=== PATIENT | female | born 1965 | race Caucasian/White ===

== ENCOUNTER 2018-04-27 17:50 | Emergency (ER) | payer MEDICAID ==
[~2018-04-27] VITALS: Ht 160 cm; Wt 88.5 kg
[2018-04-27 17:57] VITALS: BP_SYST 138
[2018-04-27 18:33] LABS: BILIRUBIN,URINE NEGATIVE (NEGATIVE); BLOOD, URINE NEGATIVE (NEGATIVE); CLARITY/URINE CLEAR (CLEAR); COLOR,URINE YELLOW (YELLOW); GLUCOSE,URINE NEGATIVE (NEGATIVE); KETONES,URINE NEGATIVE (NEGATIVE); LEUKOCYTE ESTERASE ,URINE NEGATIVE (NEGATIVE); NITRITE, URINE NEGATIVE (NEGATIVE); PROTEIN URINE NEGATIVE (NEGATIVE); UROBILINOGEN,URINE 0.2 (0.2-1.0)
[2018-04-27 18:59] LABS: BASOPHILS % (AUTO) 0.4 % (0.0-2.0); EOSINOPHILS # (AUTO) 0.3 K/uL (0.0-0.4); EOSINOPHILS % (AUTO) 4.4 % (0.0-4.0); HEMATOCRIT 37.8 % (36-48); HEMOGLOBIN 12.6 g/dL (12.0-16.0); LYMPHOCYTES % (AUTO) 30.2 % (20.5-51.5); MEAN CORPUSCULAR HEMOGLOBIN 29 pg (27-31); MEAN CORPUSCULAR HGB CONC 33 % (32-36); MEAN CORPUSCULAR VOLUME 86 fL (79.0-98.0); MONOCYTES # (AUTO) 0.4 K/uL (0.0-1.0); PLATELET COUNT (AUTO) 219 K/uL (130-430); RED BLOOD CELL COUNT(AUTO) 4.37 MIL/uL (4.2-6.2); RED CELL DISTRIBUTION WIDTH 12.4 % (9.0-15.0); WHITE BLOOD COUNT (AUTO) 6.7 K/uL (4.8-10.8)
[2018-04-27 19:03] LABS: CALCIUM 8.8 mg/dL (8.4-11.0); CREATININE 0.59 mg/dL (0.55-1.30); POTASSIUM 4.1 mmol/L (3.5-5.1)
[2018-04-27 19:18] LABS: ALBUMIN 3.4 g/dL (3.4-4.8); THYROID STIMULATING HORMONE 0.7 uIu/mL (0.34-4.82); TOTAL BILIRUBIN 0.2 mg/dL (0.0-1.0)
[2018-04-27 20:05] VITALS: BP_SYST 129
== END 2018-04-27 20:05 | disposition home or self-care (01) ==
LOC: SED 17:50
DX: R53.1 Weakness (principal); Z88.5 Allergy status to narcotic agent; Z88.6 Allergy status to analgesic agent
CPT/HCPCS: 36415; 71045; 80053; 81003; 83605; 84443-TC; 84484; 85025; 93005; 99285

== ENCOUNTER 2018-08-31 12:05 | Emergency (ER) | payer MEDICAID ==
[~2018-08-31] VITALS: Ht 160 cm; Wt 99.8 kg
[2018-08-31 12:10] VITALS: BP_SYST 157
[2018-08-31 13:01] VITALS: BP_SYST 148
== END 2018-08-31 13:01 | disposition home or self-care (01) ==
LOC: SED 12:05
DX: N39.0 Urinary tract infection, site not specified (principal); R09.1 Pleurisy; F17.200 Nicotine dependence, unspecified, uncomplicated; R03.0 Elevated blood-pressure reading, without diagnosis of hypertension; Z71.6 Tobacco abuse counseling; Z88.5 Allergy status to narcotic agent
CPT/HCPCS: 99283

== ENCOUNTER 2022-08-27 09:57 | Emergency (ER) | payer MEDICAID ==
[~2022-08-27] VITALS: Ht 160 cm; Wt 90.7 kg
--- NOTE | 2022-08-27 10:00 | NUR ---
Patient triaged and placed in waiting room. VSS and patient appears in no acute distress at this time. Accompanied by , awaiting available bed, and MD notified of need for MSE.
[2022-08-27 10:01] VITALS: BP_SYST 157
--- NOTE | 2022-08-27 10:04 | NUR ---
ER DR. HUDSON EXAMINING PT IN TRIAGE
[2022-08-27] MEDS ORDERED: IPRATROPIUM/ALBUTEROL SULFATE 3 ML AMPUL.NEB (DUONEB) ONE (10:08)
[2022-08-27] MEDS ORDERED: IPRATROPIUM/ALBUTEROL SULFATE 3 ML AMPUL.NEB (DUONEB) INH ONE (10:15)
[2022-08-27] MEDS ORDERED: predniSONE 20 MG TABLET PO ONE (10:15)
[2022-08-27 10:54] LABS: BASOPHILS % (AUTO) 0.4 % (0.0-2.0); EOSINOPHILS # (AUTO) 0.1 K/uL (0.0-0.4); EOSINOPHILS % (AUTO) 1.7 % (0.0-4.0); HEMATOCRIT 39.4 % (36-48); HEMOGLOBIN 13.3 g/dL (12.0-16.0); LYMPHOCYTES # (AUTO) 1.2 K/uL (1.0-5.5); LYMPHOCYTES % (AUTO) 15.1 % (20.5-51.5); MEAN CORPUSCULAR HEMOGLOBIN 29 pg (27-31); MEAN CORPUSCULAR HGB CONC 34 % (32-36); MEAN CORPUSCULAR VOLUME 85 fL (79.0-98.0); MONOCYTES # (AUTO) 0.3 K/uL (0.0-1.0); MONOCYTES % (AUTO) 3.5 % (1.7-9.3); NEUTROPHILS # (AUTO) 6.1 K/uL (1.8-7.7); NEUTROPHILS % (AUTO) 79.3 % (40.0-70.0); PLATELET COUNT (AUTO) 176 K/uL (130-430); RED BLOOD CELL COUNT(AUTO) 4.62 MIL/uL (4.2-6.2); RED CELL DISTRIBUTION WIDTH 13.5 % (9.0-15.0); WHITE BLOOD COUNT (AUTO) 7.6 K/uL (4.8-10.8)
--- NOTE | 2022-08-27 11:02 | NUR ---
Placed in room 04 . Placed on window display designer, blood pressure machine and pulse oximeter. To gown for exam. Side rails up. Report given to SHELBI VIVAR.
[2022-08-27 11:03] LABS: ANION GAP 11 (5-15); CALCIUM 8.4 mg/dL (8.4-11.0); CHLORIDE 104 mmol/L (98-107); CREATININE 0.77 mg/dL (0.55-1.30); GLUCOSE 265 mg/dL (70-99); UREA NITROGEN, BLOOD 12 mg/dL (8-21)
[2022-08-27 11:05] LABS: GFR AFRICAN AMERICAN 99 mL/min (>90)
--- NOTE | 2022-08-27 11:08 | NUR ---
PT STATES DIFF BREATHING AND A LITTLE BETTER AFTER HAVING A BREATHING TREATMENT. PT STATES SHE IS A SMOKER AND HAS NOT RECEIVED A VACCINATION FOR COVID. PT STATES SHE DOES NOT REGULARLY LEAVE THE HOUSE. SPOUSE AT BEDSIDE FOR SUPPORT.
[2022-08-27 11:12] LABS: ALANINE AMINOTRANSFERASE 69 U/L (12-78); ALBUMIN 3.3 g/dL (3.4-4.8); ASPARTATE AMINOTRANSFERASE 39 U/L (10-37); TOTAL BILIRUBIN 0.7 mg/dL (0.0-1.0)
[2022-08-27 11:30] VITALS: BP_SYST 120
[2022-08-27] MEDS ORDERED: AZITHROMYCIN 250 MG TABLET PO ONE (11:45)
[2022-08-27] MEDS ORDERED: ZIT250 PO ×2 (11:46)
[2022-08-27] MEDS ORDERED: AMOX500C2 PO ×2 (11:46)
[2022-08-27] MEDS ORDERED: AMOXICILLIN 500 MG CAPSULE PO ONE (12:00)
--- NOTE | 2022-08-27 12:00 | NUR ---
MEDICATED ORDERED. AWAITING TO BE DISCHARGED.
--- NOTE | 2022-08-27 12:34 | NUR ---
Patient given written and verbal discharge instructions and verbalizes understanding. ER MD discussed with patient the results and treatment provided. Patient in stable condition. ID arm band removed. Rx of AMOXICILLIN, AZITHROMYCIN given. Patient educated on pain management and to follow up with PMD. Pain Scale 0/10. Opportunity for questions provided and answered. Medication side effect fact sheet provided.
== END 2022-08-27 12:33 | disposition home or self-care (01) ==
LOC: SED 09:57
DX: J18.1 Lobar pneumonia, unspecified organism (principal); R06.02 Shortness of breath; R07.9 Chest pain, unspecified; F17.200 Nicotine dependence, unspecified, uncomplicated; Z88.5 Allergy status to narcotic agent; Z79.899 Other long term (current) drug therapy
CPT/HCPCS: 99284; 71046; 80053; 83880; 85025; 84484; 36415; 94640; J7512; Q0144; 99285

== ENCOUNTER 2022-08-29 08:52 | Inpatient (IN) | payer MEDICAID ==
[~2022-08-29] VITALS: Ht 160 cm; Wt 98.4 kg
[~2022-08-29 08:52] MED LIST: AMOX500C2 PO; ZIT250 PO
[2022-08-29] MEDS ORDERED: IPRATROPIUM BROM 0.5 MG/2.5 ML VIAL.NEB (ATROVENT) INH ONE ×2 (09:00→09:02)
[2022-08-29] MEDS ORDERED: ALBUTEROL SULFATE 0.083% 2.5 MG/3 ML VIAL.NEB INH ONE ×2 (09:00→09:02)
[2022-08-29] MEDS: IPRATROPIUM/ALBUTEROL SULFATE 3 ML AMPUL.NEB (DUONEB) INH ONE ×2 (09:06→09:44)
[2022-08-29] MEDS ORDERED: cefTRIAXone 1 GM in D5W 50 ML IV ONE (09:15)
[2022-08-29] MEDS ORDERED: methylPREDNISolone SOD SUCC/PF 62.5 MG/ML VIAL IVP ONE (09:15)
[2022-08-29] MEDS ORDERED: cefTRIAXone 1 GM VIAL ONE (09:18)
[2022-08-29] MEDS ORDERED: iohexoL 350 mgI/mL, 100 ML INFUS..BTL IV ONE (09:21)
[2022-08-29 09:26] LABS: BASOPHILS % (AUTO) 0.3 % (0.0-2.0); EOSINOPHILS # (AUTO) 0.2 K/uL (0.0-0.4); EOSINOPHILS % (AUTO) 2.2 % (0.0-4.0); HEMOGLOBIN 13.1 g/dL (12.0-16.0); LYMPHOCYTES # (AUTO) 1.7 K/uL (1.0-5.5); LYMPHOCYTES % (AUTO) 16.7 % (20.5-51.5); MEAN CORPUSCULAR HEMOGLOBIN 29 pg (27-31); MEAN CORPUSCULAR HGB CONC 34 % (32-36); MEAN CORPUSCULAR VOLUME 85 fL (79.0-98.0); MONOCYTES # (AUTO) 0.4 K/uL (0.0-1.0); MONOCYTES % (AUTO) 4.2 % (1.7-9.3); NEUTROPHILS # (AUTO) 7.6 K/uL (1.8-7.7); NEUTROPHILS % (AUTO) 76.6 % (40.0-70.0); PLATELET COUNT (AUTO) 179 K/uL (130-430); RED BLOOD CELL COUNT(AUTO) 4.47 MIL/uL (4.2-6.2); RED CELL DISTRIBUTION WIDTH 13.6 % (9.0-15.0); WHITE BLOOD COUNT (AUTO) 9.9 K/uL (4.8-10.8)
[2022-08-29 09:47] LABS: CALCIUM 8.7 mg/dL (8.4-11.0); CREATININE 0.75 mg/dL (0.55-1.30)
[2022-08-29 10:08] LABS: ALBUMIN 3.4 g/dL (3.4-4.8); TOTAL BILIRUBIN 0.5 mg/dL (0.0-1.0)
[2022-08-29] MEDS ORDERED: IPRATROPIUM/ALBUTEROL SULFATE 3 ML AMPUL.NEB (DUONEB) INH ONE (10:15)
[2022-08-29] MEDS ORDERED: FUROSEMIDE 40 MG/4 ML VIAL IVP ONE (10:45)
[2022-08-29] MEDS ORDERED: AZITHROMYCIN 500 MG in NS 250 ML IV ONE (11:45)
[2022-08-29] MEDS ORDERED: AZITHROMYCIN 500 MG/VIAL (ZITHROMAX) IV ONE (12:19)
[2022-08-29] MEDS: NORMAL SALINE 5 ML DISP.SYRIN IVF SCH ×2 (14:12→22:19)
[2022-08-29 14:59] VITALS: BP_SYST 140
[2022-08-29 15:00] VITALS: BP_SYST 140
[2022-08-29] MEDS ORDERED: FUROSEMIDE 20 MG/2 ML VIAL IVP ONE (15:15)
[2022-08-29] MEDS ORDERED: traMADol HCL HCL 50 MG TABLET (ULTRAM) PO PRN (17:45)
[2022-08-29] MEDS ORDERED: ACETAMINOPHEN 325 MG TABLET ONE (18:27)
[2022-08-29 19:00] VITALS: BP_SYST 140
[2022-08-29] MEDS: IPRATROPIUM/ALBUTEROL SULFATE 3 ML AMPUL.NEB (DUONEB) INH SCH (19:00)
[2022-08-29] MEDS: METOPROLOL SUCCINATE 25 MG TAB.SR.24H (TOPROL XL) PO SCH (19:00)
[2022-08-29 20:00] VITALS: BP_SYST 140
[2022-08-29] MEDS: METHYLPREDNISOLONE SOD SUCC 40 MG/ML VIAL IVP SCH (22:26)
[2022-08-30] VITALS: BP_SYST 138
[2022-08-30] MEDS: IPRATROPIUM/ALBUTEROL SULFATE 3 ML AMPUL.NEB (DUONEB) INH SCH ×4 (00:19→20:10)
[2022-08-30 04:00] VITALS: BP_SYST 138
[2022-08-30] MEDS: METHYLPREDNISOLONE SOD SUCC 40 MG/ML VIAL IVP SCH ×3 (05:23→23:14)
[2022-08-30] MEDS: NORMAL SALINE 5 ML DISP.SYRIN IVF SCH ×3 (05:25→23:13)
[2022-08-30 06:48] LABS: BASOPHILS % (AUTO) 0.1 % (0.0-2.0); HEMATOCRIT 41.4 % (36-48); HEMOGLOBIN 14.2 g/dL (12.0-16.0); LYMPHOCYTES # (AUTO) 0.9 K/uL (1.0-5.5); LYMPHOCYTES % (AUTO) 8.8 % (20.5-51.5); MEAN CORPUSCULAR HEMOGLOBIN 29 pg (27-31); MEAN CORPUSCULAR HGB CONC 34 % (32-36); MEAN CORPUSCULAR VOLUME 86 fL (79.0-98.0); MONOCYTES # (AUTO) 0.2 K/uL (0.0-1.0); MONOCYTES % (AUTO) 1.5 % (1.7-9.3); NEUTROPHILS # (AUTO) 9.4 K/uL (1.8-7.7); NEUTROPHILS % (AUTO) 89.6 % (40.0-70.0); PLATELET COUNT (AUTO) 245 K/uL (130-430); RED BLOOD CELL COUNT(AUTO) 4.84 MIL/uL (4.2-6.2); RED CELL DISTRIBUTION WIDTH 13.8 % (9.0-15.0); WHITE BLOOD COUNT (AUTO) 10.4 K/uL (4.8-10.8)
[2022-08-30 07:36] LABS: CALCIUM 9.5 mg/dL (8.4-11.0); CREATININE 0.89 mg/dL (0.55-1.30); THYROID STIMULATING HORMONE 0.37 uIu/mL (0.34-4.82)
[2022-08-30 08:00] VITALS: BP_SYST 146
[2022-08-30] MEDS ORDERED: AZITHROMYCIN 500 MG in NS 250 ML IV SCH (09:00)
[2022-08-30] MEDS: METOPROLOL SUCCINATE 25 MG TAB.SR.24H (TOPROL XL) PO SCH (09:00)
[2022-08-30] MEDS: cefTRIAXone 1 GM in D5W 50 ML IV SCH (09:33)
[2022-08-30] MEDS: FUROSEMIDE 20 MG/2 ML VIAL IVP SCH (09:37)
[2022-08-30] MEDS: AZITHROMYCIN 500 MG in NS 250 ML IV SCH (09:40)
[2022-08-30] MEDS ORDERED: cefTRIAXone 1 GM in D5W 50 ML IV SCH (10:00)
[2022-08-30 12:45] VITALS: BP_SYST 146
[2022-08-30] MEDS: ACETAMINOPHEN 325 MG TABLET PO PRN (14:52)
[2022-08-30 16:38] VITALS: BP_SYST 118
[2022-08-31 00:43] VITALS: BP_SYST 136
[2022-08-31] MEDS: IPRATROPIUM/ALBUTEROL SULFATE 3 ML AMPUL.NEB (DUONEB) INH SCH ×4 (01:13→21:13)
[2022-08-31] MEDS: NORMAL SALINE 5 ML DISP.SYRIN IVF SCH ×3 (05:45→21:12)
[2022-08-31] MEDS: METHYLPREDNISOLONE SOD SUCC 40 MG/ML VIAL IVP SCH ×2 (05:46→21:12)
[2022-08-31 06:47] LABS: BASOPHILS % (AUTO) 0.1 % (0.0-2.0); HEMATOCRIT 38.5 % (36-48); HEMOGLOBIN 13.1 g/dL (12.0-16.0); LYMPHOCYTES # (AUTO) 2.6 K/uL (1.0-5.5); LYMPHOCYTES % (AUTO) 18.7 % (20.5-51.5); MEAN CORPUSCULAR HEMOGLOBIN 29 pg (27-31); MEAN CORPUSCULAR HGB CONC 34 % (32-36); MEAN CORPUSCULAR VOLUME 85 fL (79.0-98.0); MONOCYTES # (AUTO) 0.7 K/uL (0.0-1.0); MONOCYTES % (AUTO) 5.2 % (1.7-9.3); NEUTROPHILS # (AUTO) 10.5 K/uL (1.8-7.7); PLATELET COUNT (AUTO) 263 K/uL (130-430); RED CELL DISTRIBUTION WIDTH 13.7 % (9.0-15.0); WHITE BLOOD COUNT (AUTO) 13.8 K/uL (4.8-10.8)
[2022-08-31 07:18] LABS: CALCIUM 9.2 mg/dL (8.4-11.0); CREATININE 0.92 mg/dL (0.55-1.30)
[2022-08-31 08:00] VITALS: BP_SYST 108
[2022-08-31] MEDS: METOPROLOL SUCCINATE 25 MG TAB.SR.24H (TOPROL XL) PO SCH (09:25)
[2022-08-31] MEDS: cefTRIAXone 1 GM in D5W 50 ML IV SCH (09:44)
[2022-08-31] MEDS: FUROSEMIDE 20 MG/2 ML VIAL IVP SCH (09:44)
[2022-08-31] MEDS: AZITHROMYCIN 500 MG in NS 250 ML IV SCH (09:44)
[2022-08-31 12:00] VITALS: BP_SYST 128
[2022-08-31 16:00] VITALS: BP_SYST 132
[2022-09-01 01:16] VITALS: BP_SYST 132
[2022-09-01] MEDS: IPRATROPIUM/ALBUTEROL SULFATE 3 ML AMPUL.NEB (DUONEB) INH SCH ×3 (07:02→20:07)
[2022-09-01 08:00] VITALS: BP_SYST 130
[2022-09-01 08:25] VITALS: BP_SYST 132
[2022-09-01] MEDS: cefTRIAXone 1 GM in D5W 50 ML IV SCH (09:04)
[2022-09-01] MEDS: FUROSEMIDE 20 MG/2 ML VIAL IVP SCH (09:35)
[2022-09-01] MEDS: METHYLPREDNISOLONE SOD SUCC 40 MG/ML VIAL IVP SCH ×2 (09:35→21:56)
[2022-09-01] MEDS: METOPROLOL SUCCINATE 25 MG TAB.SR.24H (TOPROL XL) PO SCH (09:36)
[2022-09-01] MEDS: AZITHROMYCIN 500 MG in NS 250 ML IV SCH (10:23)
[2022-09-01] MEDS: NORMAL SALINE 5 ML DISP.SYRIN IVF SCH ×2 (14:00→21:56)
[2022-09-01 17:29] VITALS: BP_SYST 130
[2022-09-01 20:00] VITALS: BP_SYST 131
[2022-09-02] MEDS: NORMAL SALINE 5 ML DISP.SYRIN IVF SCH (05:12)
[2022-09-02] MEDS: IPRATROPIUM/ALBUTEROL SULFATE 3 ML AMPUL.NEB (DUONEB) INH SCH ×3 (05:18→13:16)
[2022-09-02 08:00] VITALS: BP_SYST 132
[2022-09-02] MEDS: ACETAMINOPHEN 325 MG TABLET PO PRN (08:42)
[2022-09-02] MEDS: METOPROLOL SUCCINATE 25 MG TAB.SR.24H (TOPROL XL) PO SCH (08:43)
[2022-09-02] MEDS: FUROSEMIDE 20 MG/2 ML VIAL IVP SCH (09:21)
[2022-09-02] MEDS: METHYLPREDNISOLONE SOD SUCC 40 MG/ML VIAL IVP SCH (09:22)
[2022-09-02] MEDS: cefTRIAXone 1 GM in D5W 50 ML IV SCH (09:33)
[2022-09-02] MEDS: AZITHROMYCIN 500 MG in NS 250 ML IV SCH (10:21)
[2022-09-02 11:32] VITALS: BP_SYST 147
[2022-09-02] MEDS ORDERED: PRED20TA PO (12:41)
[2022-09-02] MEDS ORDERED: METO-540 PO (12:41)
[2022-09-02 13:27] VITALS: BP_SYST 147
== END 2022-09-02 14:26 | disposition home or self-care (01) | DRG 720 ==
LOC: SED 08:52 → SMU 12:06
PROVIDERS: ADMIT Internal Medicine; ATTEND Internal Medicine
DX: A41.9 Sepsis, unspecified organism (principal); J96.01 Acute respiratory failure with hypoxia; I50.23 Acute on chronic systolic (congestive) heart failure; J18.9 Pneumonia, unspecified organism; I27.20 Pulmonary hypertension, unspecified; I11.0 Hypertensive heart disease with heart failure; I27.21 Secondary pulmonary arterial hypertension; J44.0 Chronic obstructive pulmonary disease with (acute) lower respiratory infection; J44.1 Chronic obstructive pulmonary disease with (acute) exacerbation; Z20.822 Contact with and (suspected) exposure to COVID-19; F17.200 Nicotine dependence, unspecified, uncomplicated; Z88.5 Allergy status to narcotic agent; Z79.899 Other long term (current) drug therapy
CPT/HCPCS: 36415; 36600; 71045; 71275; 76376; 80048; 80053; 80061; 82803-TC; 83605; 83880; 84443; 84484; 85025; 87040; 93005; 93306; 94640; 94760; 96365; 96375; 99291; J0456; J0696; J1030; J1940; J2930; J7050; J7060; J7613; Q9967